=== PATIENT | female | born 1985 | race Hispanic/Latino ===

== ENCOUNTER 2023-12-23 07:26 | Day surgery (SDC) | payer BC ==
[2023-12-19 16:01] LABS: Absolute Basophils 0.1 K/uL (0-0.5); Absolute Eosinophils 0.2 K/uL (0-0.5); Absolute Lymphocytes (CBC) 2.9 K/uL (0.7-4.9); Absolute Monocytes 0.7 K/uL (0.1-1.3); Absolute Neutrophil 4.5 K/uL (1.8-8.0); Basophils % 0.9 % (0-1.3); Eosinophils % 2.3 % (0-4.4); Hematocrit 37.5 % (36.0-45.0); Hemoglobin 12.6 g/dL (12.0-15.0); Lymphocytes % 34.7 % (15.3-44.8); MCH 31.2 pg (27.0-35.0); MCHC 33.6 g/dL (32.0-36.0); MCV 92.9 fL (80-100); MPV 9.2 fL (7.6-11.3); Monocytes % 8.3 % (3.3-12.3); Neutrophils % 53.8 % (41.7-73.7); Nucleated Red Blood Cells % 0.1 % (0-0); Platelets 295 thou/uL (152-406); RBC Red Blood Cell Count 4.03 M/uL (3.86-4.86); Red Cell Distribution Width 13.1 % (12.1-15.2)
[2023-12-19 16:17] LABS: ALT/SGPT 18 U/L (13-56); Albumin 3.3 g/dL (3.4-5.0); Alkaline Phosphatase 60 U/L (45-117); Anion Gap 5.5 mEq/L (5.0-15.0); BUN Blood Urea Nitrogen 15 mg/dL (7-18); Bicarbonate 26 mEq/L (21-32); Bilirubin Total 0.3 mg/dL (0.2-1.0); Globulin 3.4 g/dL (2.3-3.5); Glomerular Filtration Rate 116 ml/min (=/>90); Glucose Level 87 mg/dL (74-106); Lipase 34 U/L (13-75); Potassium 3.5 mEq/L (3.5-5.1); Protein, Total 6.7 g/dL (6.4-8.2); Sodium Level 138 mEq/L (136-145)
[2023-12-19 16:21] LABS: AST/SGOT < 10 U/L (15-37); Bilirubin Direct < 0.2 mg/dL (0-0.2); Bilirubin Indirect, Calculated 0.1 mg/dL (0.2-0.8)
--- NOTE | 2023-12-19 17:13 | RAD REPORT ---
EXAM DESCRIPTION: RAD - Chest Pa And Lat (2 Views) - 12/19/2023 4:18 pm CLINICAL HISTORY: pre op for day surgery. Hypertension COMPARISON: No comparisons TECHNIQUE: PA and lateral views of the chest were obtained. FINDINGS: The lungs are clear. Heart size is normal and central vasculature is within normal limits. No pleural effusion or pneumothorax seen. No acute bony finding noted. IMPRESSION: No acute cardiopulmonary process.
--- NOTE | 2023-12-21 11:45 | EKG ---
Test Date: 2023-12-19 Test Time: 15:41:51 Passenger Service Representative: MARTHA MEASUREMENT RESULTS: Intervals: Rate: 71 [place]: 190 QRSD: 78 QT: 380 QTc: 412 [place]: P: 73 [place]: 190 QRS: 52 T: 55 INTERPRETIVE STATEMENTS: Normal sinus rhythm Low voltage QRS Borderline ECG No previous ECG available for comparison Electronically Signed On 12-21-23 11:44:00 CDT by Zaheer Alvarado
[2023-12-23] MEDS: Ringers Lactate 1,000 ML IV ONE (07:50)
[2023-12-23] MEDS ORDERED: FENTANYL CITR 100 MCG/2 ML ONE (08:03)
[2023-12-23] MEDS ORDERED: MIDAZOLAM HCL 2 MG/2 ML INJ ONE (08:03)
[2023-12-23] MEDS ORDERED: LIDOCAINE 1% MPF 5 ML VIAL ONE (08:03)
[2023-12-23] MEDS ORDERED: propofoL 200 MG/20 ML VIAL IV ONE (08:03)
[2023-12-23] MEDS ORDERED: ROCURONIUM 50 MG/5 ML VIAL IV ONE (08:03)
[2023-12-23] MEDS ORDERED: SUGAMMADEX SODIUM 200 MG/2 ML VIAL IV ONE (08:12)
[2023-12-23] MEDS ORDERED: SUCCINYLCHOLINE 20 MG/ML (10 ML) IV ONE (08:12)
[2023-12-23] MEDS ORDERED: FAMOTIDINE 20 MG/2 ML VIAL IV ONE (08:12)
[2023-12-23] MEDS: CEFOXITIN SODIUM 1 GM/VIAL ONE (08:45)
[2023-12-23] MEDS ORDERED: NEOSTIGMINE 1 MG/ML -10 ML VIAL ONE (09:09)
[2023-12-23] MEDS ORDERED: ONDANSETRON 4 MG/2 ML VIAL ONE (09:09)
[2023-12-23] MEDS ORDERED: GLYCOPYRROLATE 0.2 MG/ML SYR ONE (09:09)
[2023-12-23] MEDS ORDERED: dexAMETHasone 4 MG/ML VIAL ONE (09:09)
[2023-12-23] MEDS ORDERED: KETOROLAC 30 MG/ML INJ ONE (09:10)
--- NOTE | 2023-12-23 09:23 | P.BOP ---
Preoperative diagnosis: symptomatic cholelithiasis Postoperative diagnosis: same Primary procedure: Laparoscopic cholecystectomy Estimated blood loss: <10cc Specimen: gb Findings: as above Anesthesia: General Complications: None Transferred to: Recovery Room Condition: Good
[2023-12-23] MEDS: FENTANYL CITR 100 MCG/2 ML ONE (09:36)
[2023-12-23 10:14] VITALS: O2SAT 100
[2023-12-23] MEDS: Oxycodone HCl/Acetaminophen 5/325 MG TAB ONE (10:29)
[2023-12-23 11:40] VITALS: BP 103/61; TEMP 97.5
== END 2023-12-23 11:05 | disposition home or self-care (01) ==
LOC: OR 07:26
PROVIDERS: ATTEND Surgery
PROC: 0FT44ZZ Resection of Gallbladder, Percutaneous Endoscopic Approach (ICD-10-PCS; principal; 2023-12-23 08:30)
DX: K80.20 Calculus of gallbladder without cholecystitis without obstruction (principal); K80.10 Calculus of gallbladder with chronic cholecystitis without obstruction
CPT/HCPCS: 93005; 85025; 80048; 36415; 81025; 80076; 88304; 83690; 71046; 47562; J2704; J1100; J2710; J2001; J2250; J3010 ×2; J0694; J2405; J7120